=== PATIENT | male | born 1970 | race Caucasian/White ===

== ENCOUNTER → 2016-12-17 | Outpatient (CLI) | payer BC ==
[2016-12-17 11:01] LABS: CHLORIDE,CL 110 mmol/L (98-110); SODIUM,NA 137 mmol/L (136-146)
== END ==
LOC: MW.LAB 09:51
PROVIDERS: ATTEND Internal Medicine
DX: N18.5 Chronic kidney disease, stage 5 (principal)
CPT/HCPCS: 36415; 80069; 82306; 82310; 83970; 85027

== ENCOUNTER 2017-08-05 12:36 | Emergency (ER) | payer MEDICARE, BC ==
[2017-08-05] MEDS ORDERED: Ketorolac 60 MG/2 ML SDV IM ONE (13:10)
--- NOTE | 2017-08-05 13:38 | EDM.PDOC ---
ED HPI GENERAL MEDICAL PROBLEM - General Chief Complaint: Back Pain or Injury Stated Complaint: BACK PAIN Time Seen by Provider: 08/05/17 13:15 Source of Information: Reports: Patient History Limitations: Reports: No Limitations - History of Present Illness INITIAL COMMENTS - FREE TEXT/NARRATIVE: History of present illness: [46-year-old male comes in status post dialysis with complaints of right sided back pain. Patient indicated that it hurts worse when he lies flat on his back but that palpation also makes it hurt.] Review of systems: As per history of present illness and below otherwise all systems reviewed and negative. Past medical history: As per history of present illness and as reviewed below otherwise noncontributory. Surgical history: As per history of present illness and as reviewed below otherwise noncontributory. Social history: No reported history of drug or alcohol abuse. Family history: As per history of present illness and as reviewed below otherwise noncontributory. Physical exam: HEENT: Atraumatic, normocephalic, pupils reactive, negative for conjunctival pallor or scleral icterus, mucous membranes moist, throat clear, neck supple, nontender, trachea midline. Lungs: Clear to auscultation, breath sounds equal bilaterally, chest nontender. Heart: S1S2, regular, negative for clicks, rubs, or JVD. Abdomen: Soft, nondistended, nontender. Negative for masses or hepatosplenomegaly. Negative for costovertebral tenderness. Pelvis: Stable nontender. Genitourinary: Deferred. Rectal: Deferred. Extremities: Atraumatic, negative for cords or calf pain. Neurovascular unremarkable. Neuro: Awake, alert, oriented. Cranial nerves II through XII unremarkable. Cerebellum unremarkable. Motor and sensory unremarkable throughout. Exam nonfocal. Global assessment is benign save the subjective complaint as noted in history of present illness able to reproduce the flank pain with deep palpation to the right side Diagnostics: [UA, CT of abdomen without contrast] Therapeutics: [Toradol, Norflex] Impression: [UTI] Plan: [] Definitive disposition and diagnosis as appropriate pending reevaluation and review of above. Right Back Pain Score (Numeric/FACES): 8 - Related Data Allergies Allergy/AdvReac Type Severity Reaction Status Date / Time No Known Allergies Allergy Verified 08/05/17 13:01 Home Meds: Home Meds Aspirin 81 mg PO BRK 08/05/17 [History] Calcium Acetate [PhosLo] 2 tab PO TID 08/05/17 [History] Doxazosin [Cardura] 1 tab PO BID 08/05/17 [History] Furosemide [Furosemide] 1 tab PO DAILY 08/05/17 [History] Insulin Glarg,Human.Rec.Analog [LantUS Solostar] 25 units SQ BID 08/05/17 [ History] Nitrofurantoin Monohyd/M-Cryst [Macrobid 100 mg Capsule] 100 mg PO BID #20 capsule 08/05/17 [Rx] atorvaSTATin Calcium [Atorvastatin Calcium] 1 tab PO DAILY 08/05/17 [History] Past Medical History Genitourinary History: Reports: Dialysis, Renal Disease Endocrine/Metabolic History: Reports: Diabetes, Type I Social & Family History - Family History Family Medical History: Noncontributory - Tobacco Use Smoking Status *Q: Never Smoker Second Hand Smoke Exposure: No - Caffeine Use Caffeine Use: Reports: Coffee - Recreational Drug Use Recreational Drug Use: No ED ROS GENERAL - Review of Systems Review Of Systems: See Below (See history of present illness) ED EXAM, GENERAL - Physical Exam Exam: See Below (See history of present illness) Course - Vital Signs Last Recorded V/S: Last Vital Signs Temp 35.9 C 08/05/17 13:06 Pulse 80 08/05/17 13:06 Resp 12 08/05/17 13:06 BP 151/81 H 08/05/17 13:06 Pulse Ox 98 08/05/17 13:06 - Orders/Labs/Meds Orders: Active Orders 24 hr Category Date Time Status Orphenadrine [Norflex] Med 08/05/17 13:15 Active 60 mg IM Q12H Medication Orders Orphenadrine Citrate (Norflex) 60 mg IM Q12H HARPAL Last Admin: 08/05/17 13:55 Dose: 60 mg Labs: Laboratory Tests 08/05/17 Range/Units 13:20 Urine Color YELLOW Urine Appearance CLEAR Urine pH 7.5 (5.0-8.0) Ur Specific [place] 1.015 (1.001-1.035) Urine Protein >=300 (NEGATIVE) mg/dL Urine Glucose (UA) 100 H (NEGATIVE) mg/dL Urine Ketones NEGATIVE (NEGATIVE) mg/dL Urine Occult Blood SMALL H (NEGATIVE) Urine Nitrite NEGATIVE (NEGATIVE) Urine Bilirubin NEGATIVE (NEGATIVE) Urine Urobilinogen 0.2 (<2.0) EU/dL Ur Leukocyte Esterase TRACE (NEGATIVE) Urine RBC 0-1 (0-2/HPF) Urine WBC 1-3 (0-5/HPF) Ur Epithelial Cells RARE (NONE-FEW) Urine Bacteria RARE (NEGATIVE) Meds: Medications Generic Name Dose Route Start Last Admin Trade Name Freq PRN Reason Stop Dose Admin Orphenadrine Citrate 60 mg 08/05/17 13:15 08/05/17 13:55 Norflex IM 60 mg Q12H HARPAL Administration Discontinued Medications Generic Name Dose Route Start Last Admin Trade Name Freq PRN Reason Stop Dose Admin Ketorolac Tromethamine 60 mg 08/05/17 13:10 08/05/17 13:56 Toradol IM 08/05/17 13:11 60 mg ONETIME ONE Administration Departure - Departure Time of Disposition: 14:50 Disposition: Home, Self-Care 01 Condition: Good Clinical Impression: UTI (urinary tract infection) - Discharge Information Prescriptions: Nitrofurantoin Monohyd/M-Cryst [Macrobid 100 mg Capsule] 100 mg PO BID #20 capsule Referrals: Devin Florez MD [Primary Care Provider] - Forms: ED Department Discharge Additional Instructions: The following information is given to patients seen in the emergency department who are being discharged to home. This information is to outline your options for follow-up care. We provide all patients seen in our emergency department with a follow-up referral. The need for follow-up, as well as the timing and circumstances, are variable depending upon the specifics of your emergency department visit. If you don't have a primary care physician on staff, we will provide you with a referral. We always advise you to contact your personal physician following an emergency department visit to inform them of the circumstance of the visit and for follow-up with them and/or the need for any referrals to a consulting specialist. The emergency department will also refer you to a specialist when appropriate. This referral assures that you have the opportunity for follow-up care with a specialist. All of these measure are taken in an effort to provide you with optimal care, which includes your follow-up. Under all circumstances we always encourage you to contact your private physician who remains a resource for coordinating your care. When calling for follow-up care, please make the office aware that this follow-up is from your recent emergency room visit. If for any reason you are refused follow-up, please contact the [facility] Emergency Department at and asked to speak to the emergency department charge nurse. Take medication as directed Follow-up with primary care 1-2 days Return to ED as needed as discussed - My Orders Last 24 Hours: My Active Orders 08/05/17 13:15 Orphenadrine [Norflex] 60 mg IM Q12H - Assessment/Plan Last 24 Hours: My Active Orders 08/05/17 13:15 Orphenadrine [Norflex] 60 mg IM Q12H
--- NOTE | 2017-08-05 14:42 | CT ---
CT of the abdomen and pelvis without contrast. HISTORY: Pain TECHNIQUE: Axial CT images were obtained of the abdomen and pelvis without contrast. Coronal and sagi ttal reconstructions obtained. FINDINGS: The lung bases are clear, no pleural effusion. The liver, spleen, adrenal glands, and pancreas appear unremarkable for noncontrast examination. The gallbladder appears normal. There is no bulky retroperitoneal lymphadenopathy. No abdominal ascites. There are no calcifications noted within the kidneys or along the courses of the ureters bilaterally. The large and small bowel are normal in caliber without evidence of obstruction. The appendix appears normal. There is no bulky pelvic lymphadenopathy. No free fluid. No free air. The urinary bladder ap pears normal. The visualized osseous structures appear normal. IMPRESSION: No acute findings within the abdomen or pelvis.
== END 2017-08-05 15:10 | disposition home or self-care (01) ==
LOC: MW.ED 12:36
DX: N39.0 Urinary tract infection, site not specified (principal); Z79.899 Other long term (current) drug therapy; E10.9 Type 1 diabetes mellitus without complications; Z79.4 Long term (current) use of insulin
CPT/HCPCS: 74176; 81001; 96372; 99284; J1885; J2360; 99282

== ENCOUNTER 2017-08-19 00:03 | Emergency (ER) | payer MEDICARE, BC | END 2017-08-19 00:35 | disposition left against medical advice (07) | LOC: MW.ED 00:03 | DX: Z53.21 Procedure and treatment not carried out due to patient leaving prior to being seen by health care provider (principal) | CPT/HCPCS: 99283 ==

== ENCOUNTER 2021-01-03 17:17 | Emergency (ER) | payer MEDICARE, BC ==
[2021-01-03] MEDS ORDERED: Cyclobenzaprine 5 MG Tab PO STA (17:43)
[2021-01-03] MEDS ORDERED: Ketorolac 30 MG/ML SDV IM STA (17:44)
[2021-01-03] MEDS ORDERED: Lidocaine 5% 700 MG Patch TRDERM ONE (18:52)
--- NOTE | 2021-01-03 19:00 | EDM.PDOC ---
<Errol Jimenez Ivan - Last Filed: 01/03/21 19:21> ED HPI GENERAL MEDICAL PROBLEM - General Chief Complaint: Back Pain or Injury Stated Complaint: MAJOR BACK PAIN Time Seen by Provider: 01/03/21 17:34 Source of Information: Reports: Patient History Limitations: Reports: No Limitations - History of Present Illness INITIAL COMMENTS - FREE TEXT/NARRATIVE: Patient is a 50-year-old male who presents today for back pain. Patient was at work as he bent over to lift something any further sharp pain in the right side of his lower back. Patient dates that he had trouble walking and putting pain in his right leg. Patient denies any urinary incontinence any saddle anesthesia or numbness to his lower extremities. Patient denies any falls or injuries to h is back. Right Lower Back Pain Score (Numeric/FACES): 7 - Related Data Allergies Allergy/AdvReac Type Severity Reaction Status Date / Time No Known Allergies Allergy Verified 01/03/21 17:46 Home Meds: Home Meds Aspirin 81 mg PO BEDTIME 08/05/17 [History] Insulin Glarg,Human.Rec.Analog [LantUS Solostar] 25 units SQ BID 08/05/17 [History] atorvaSTATin Calcium [Atorvastatin Calcium] 1 tab PO DAILY 08/05/17 [History] Insulin Aspart [Novolog Flexpen] 1 dose SUBCUT ASDIRECTED 08/19/17 [History] Acetaminophen/HYDROcodone [[place] 325-5 MG] 1 tab PO Q6H PRN #12 tablet 01/03/21 [Rx] Cyclobenzaprine [Flexeril] 10 mg PO TID PRN #20 tab 01/03/21 [Rx] Lidocaine 5% [Lidoderm 5%] 1 patch TOP DAILY PRN #7 patch 01/03/21 [Rx] Tacrolimus [Prograf] 1 dose PO ASDIRECTED 01/03/21 [History] amLODIPine [Norvasc] 5 mg PO DAILY 01/03/21 [History] mycophenolate mofetiL [Mycophenolate Mofetil] 250 mg PO DAILY 01/03/21 [History] predniSONE [Prednisone] 5 mg PO DAILY 01/03/21 [History] Past Medical History - Past Health History Medical/Surgical History: Denies Medical/Surgical History HEENT History: Reports: None Cardiovascular History: Reports: High Cholesterol, Hypertension Genitourinary History: Reports: Dialysis, Renal Disease Endocrine/Metabolic History: Reports: Diabetes, Type I - Infectious Disease History Infectious Disease History: Reports: Chicken Pox Social & Family History - Family History Family Medical History: No Pertinent Family History - Tobacco Use Tobacco Use Status *Q: Never Tobacco User - Caffeine Use Caffeine Use: Reports: Coffee Caffeine Use Comment: 2 cups daily - Recreational Drug Use Recreational Drug Use: No ED ROS GENERAL - Review of Systems Constitutional: Reports: No Symptoms HEENT: Reports: No Symptoms Respiratory: Reports: No Symptoms Cardiovascular: Reports: No Symptoms Endocrine: Reports: No Symptoms GI/Abdominal: Reports: No Symptoms : Reports: No Symptoms Musculoskeletal: Reports: Back Pain Skin: Reports: No Symptoms Neurological: Reports: No Symptoms Psychiatric: Reports: No Symptoms Hematologic/Lymphatic: Reports: No Symptoms Immunologic: Reports: No Symptoms ED EXAM,LOWER BACK PAIN/INJURY - Physical Exam Exam: See Below Exam Limited By: No Limitations General Appearance: Alert, WD/WN, No Apparent Distress Eye Exam: Bilateral Eye: EOMI, PERRL Head: Atraumatic, Normocephalic Respiratory/Chest: No Respiratory Distress, Lungs Clear, Normal Breath Sounds Cardiovascular: Normal Peripheral Pulses, Regular Rate, Rhythm GI/Abdominal: Normal Bowel Sounds, Soft, Non-Tender Back Exam: Normal Inspection, Decreased Range of Motion (due to pain pain with straight leg raise) Neurological: Alert, Normal Mood/Affect, CN II-XII Intact Course - Re-Assessments/Exams Free Text/Narrative Re-Assessment/Exam: 01/03/21 19:21 Patient 7 back pain will attempt to give lidocaine patch. Patient be signed out pain improved patient be discharged home. Departure - Departure Time of Disposition: 19:00 Disposition: Home, Self-Care 01 Condition: Good Clinical Impression: History of renal transplant, History of diabetes mellitus Lumbago Qualifiers: Chronicity: acute Back pain laterality: right Sciatica presence: without sciatica Qualified Code(s): M54.5 - Low back pain - Discharge Information Prescriptions: Cyclobenzaprine [Flexeril] 10 mg PO TID PRN #20 tab PRN Reason: Muscle Spasm Lidocaine 5% [Lidoderm 5%] 1 patch TOP DAILY PRN #7 patch PRN Reason: Pain Acetaminophen/HYDROcodone [[place] 325-5 MG] 1 tab PO Q6H PRN #12 tablet PRN Reason: Pain Instructions: Acute Back Pain, Adult, Pain Medicine Instructions, [id number] Referrals: PCP,None [Primary Care Provider] - Forms: ED Department Discharge Additional Instructions: Your seen and evaluated in the ER today secondary to acute lower back pain. Given your history of diabetes and a kidney transplant, please avoid any nonsteroidal anti-inflammatory medications. You will be started on Flexeril which is a muscle relaxant as well as [place] which is a painkiller. The following information is given to patients seen in the emergency department who are being discharged to home. This information is to outline your options for follow-up care. We provide all patients seen in our emergency department with a follow-up referral. The need for follow-up, as well as the timing and circumstances, are variable depending upon the specifics of your emergency department visit. If you don't have a primary care physician on staff, we will provide you with a referral. We always advise you to contact your personal physician following an emergency department visit to inform them of the circumstance of the visit and for follow-up with them and/or the need for any referrals to a consulting specialist. The emergency department will also refer you to a specialist when appropriate. This referral assures that you have the opportunity for follow-up care with a specialist. All of these measure are taken in an effort to provide you with optimal care, which includes your follow-up. Under all circumstances we always encourage you to contact your private physician who remains a resource for coordinating your care. When calling for follow-up care, please make the office aware that this follow-up is from your recent emergency room visit. If for any reason you are refused follow-up, please contact the [facility] Emergency Department at and asked to speak to the emergency department charge nurse. [facility] [address] [place] [id number] [id number] Sepsis Event Note (ED) - Evaluation Sepsis Screening Result: No Definite Risk - Assessment/Plan Plan: Is a 50-year-old male who presents today for lower back pain after bending over. Patient pain is muscle skeletal in nature will give Toradol Flexeril likely lidocaine patch. <JordonAsh - Last Filed: 01/03/21 20:24> ED HPI GENERAL MEDICAL PROBLEM - History of Present Illness INITIAL COMMENTS - FREE TEXT/NARRATIVE: This is a 50-year-old gentleman with a history significant for a renal transplant approximately 3 years ago secondary to his diabetes who presents ER today secondary to severe sharp excruciating pain on the right side of his lower back that occurred when he was bending over to lift an object. Patient denies any other symptomatology. Patient has any recent fevers, shakes, chills, nausea, vomiting, diarrhea, dysuria, frequency, urgency, hematuria. Patient denies any weakness to his upper or lower extremities. Patient denies any paresthesias to his perineal region. Patient denies any loss of bowel or bladder function. Patient denies any symptoms of be concerning for cauda equina. Patient has any symptoms of be concerning for an epidural abscess. Patient reports that the pain is acute and lateralized to the right side and has no central discomfort. This patient was seen and evaluated during the 2019 SARS-CoV-2 novel coronavirus pandemic period. Community viral transmission is ongoing at time of this en counter and the emergency department is operating under pandemic response procedures. Constitutional: Patient is oriented to person, place, and time. Appears well- developed and well-nourished. No distress. HEENT: Moist mucous membranes Head: Normocephalic and atraumatic Eyes: Right eye exhibits no discharge. Left eye exhibits no discharge. No scleral icterus Neck: Normal range of motion. No tracheal deviation present. Cardiovascular: Normal rate and regular rhythm. Pulmonary: Effort normal, no respiratory distress. Abdominal: No distention Musculoskeletal: Normal range of motion Neurologic: Alert and oriented to person, place and time. Skin: [place], warm and dry. Psychiatric: Normal mood and affect. Behavior is normal. Judgment and thought content normal. Nursing note and vital signs have been reviewed Patient's ER physical exam is significant for tenderness to palpation to his right lower back over his right sacral region. Patient is ambulating in ED without difficulty. Patient has a essentially normal neurological exam. Patient has 5 out of 5 upper and lower extremity strength. Patient has no paresthesias or sensory deficits. Patient has no point C-spine T-spine or L- spine tenderness to palpation. Patient denies any recent fevers. Patient denies any alcohol tobacco or drugs. Patient denies any IVDA. Assessment and plan: This is a 50-year-old gentleman who presents to the ER today secondary to severe pain to his right lower lateral back. 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 I had a long discussion with the patient and he is amenable to getting started on Dilaudid IM here in the ED and will be discharged home with [place] and Flexeril. Patient is requesting to avoid any NSAIDs secondary to his history of renal transplant. Patient also be in a prescription for Lidoderm patches. This was discussed with the patient prior to discharge. Reassessment at the time of disposition demonstrates that the patient is in no acute distress. The patient has remained stable throughout the entire ED visit and is without objective evidence for acute process requiring urgent intervention or hospitalization. The patient is stable for discharge, counseling is provided as documented above, discussed symptomatic treatment and specific conditions for return. I have spoken with the patient/caregiver and discussed todays findings, in addition to providing specific details for the plan of care. Questions are answered and there is agreement with the plan. ED ROS GENERAL - Review of Systems Review Of Systems: See Below Course - Vital Signs Last Recorded V/S: Last Vital Signs Temp 99 F 01/03/21 17:49 Pulse 66 01/03/21 17:57 Resp 17 01/03/21 17:57 BP 122/59 L 01/03/21 17:57 Pulse Ox 99 01/03/21 17:57 - Orders/Labs/Meds Meds: Medications Discontinued Medications Generic Name Dose Route Start Last Admin Trade Name Freq PRN Reason Stop Dose Admin Cyclobenzaprine HCl 5 mg 01/03/21 17:43 01/03/21 17:56 Cyclobenzaprine 5 Mg Tab PO 01/03/21 17:44 5 mg NOW STA Administration Hydromorphone HCl 1 mg 01/03/21 19:21 01/03/21 19:35 Hydromorphone 1 Mg/Ml Syringe IM 01/03/21 19:22 1 mg ONETIME ONE Administration Ketorolac Tromethamine 30 mg 01/03/21 17:44 01/03/21 17:52 Ketorolac 30 Mg/Ml Sdv IM 01/03/21 17:45 30 mg NOW STA Administration Lidocaine 700 mg 01/03/21 18:52 01/03/21 18:58 Lidocaine 5% 700 Mg Patch TRDERM 01/03/21 18:53 700 mg ONETIME ONE Administration Ondansetron HCl 4 mg 01/03/21 19:22 01/03/21 19:35 Ondansetron 4 Mg Tab.Dis PO 01/03/21 19:23 4 mg ONETIME ONE Administration Departure - Departure Condition: Good Sepsis Event Note (ED) - Focused Exam Vital Signs: Vital Signs Temp Pulse Resp BP Pulse Ox 01/03/21 17:57 66 17 122/59 L 99 01/03/21 17:49 99 F 71 20 197/88 H 98
[2021-01-03] MEDS ORDERED: HYDROmorphone 1 MG/ML Syringe IM ONE (19:21)
[2021-01-03] MEDS ORDERED: Ondansetron 4 MG Tab.DIS PO ONE (19:22)
== END 2021-01-03 20:22 | disposition home or self-care (01) ==
LOC: MW.ED 17:17
DX: M54.5 Low back pain (principal); E78.00 Pure hypercholesterolemia, unspecified; I10 Essential (primary) hypertension; E10.9 Type 1 diabetes mellitus without complications; Z79.899 Other long term (current) drug therapy; Z94.0 Kidney transplant status
CPT/HCPCS: 96372; 99283; A9270; J1170; J1885

== ENCOUNTER 2021-08-22 20:39 | Emergency (ER) | payer BC, MEDICARE ==
[2021-08-22] MEDS ORDERED: Sodium Chloride 0.9% 1,000 ML IV ONE (20:46)
[2021-08-22] MEDS ORDERED: Sodium Chloride 0.9% 10 ML Syringe FLUSH PRN (20:46)
[2021-08-22] MEDS ORDERED: Sodium Chloride 0.9% 2.5 ML Syringe FLUSH PRN (20:46)
[2021-08-22 22:04] LABS: BLOOD UREA NITROGEN,BUN 19 mg/dL (7.0-18.0); CHLORIDE,CL 103 mmol/L (98-107); GLUCOSE RANDOM 113 mg/dL (74-106); POTASSIUM,K 3.6 mmol/L (3.5-5.1); SODIUM,NA 142 mmol/L (136-148)
--- NOTE | 2021-08-22 22:57 | EDM.PDOC ---
ED HPI GENERAL MEDICAL PROBLEM - General Chief Complaint: Diabetic Complaint Stated Complaint: DIABETIC SHOCK Time Seen by Provider: 08/22/21 20:52 - History of Present Illness INITIAL COMMENTS - FREE TEXT/NARRATIVE: CHIEF COMPLAINT(S): Low blood sugar HISTORY OF PRESENT ILLNESS: This is a 30-year-old man with a past medical history of insulin-dependent diabetes mellitus and kidney transplant who comes to the emergency department with a chief complaint of low blood sugar. Per EMS: The patient was at work when a coworker contacted EMS because patient was acting abnormal and was having a low glucose. On arrival patient's glucose is 27 however they had difficulty obtaining IV access so they provide the patient with glucagon by mouth. They stated that patient improved during transport. The patient currently states that he does not have any chest pain, shortness of breath, abdominal pain, nausea or vomiting. He states that he just feels cold. He states that he did not take any extra insulin and denies any suicidal ideation. He states that he just did not eat as much today. He states that he normally takes 30 units of long-acting in the evening and 25 in the morning with a sliding scale during the day. He states that other than feeling like his sugar was low he denied any other symptoms but states that he has been working every day for the last month and has been experiencing a lot of stress. He denies any other symptoms REVIEW OF SYSTEMS: Constitutional: Positive for chills. Denies fever Eyes: Denies eye pain Ears, Nose, Mouth, & Throat: Denies earache Cardiovascular: Denies chest pain Respiratory: Denies shortness of breath Gastrointestinal: Denies Nausea, vomiting, diarrhea, hematochezia. Genitourinary: Denies hematuria Skin:Denies a rash MSK: Denies joint pain Neurological: Denies blurred vision Psychiatric: Denies depression PAST MEDICAL HISTORY: As per history of present illness and as reviewed below otherwise noncontributory. SURGICAL HISTORY: As per history of present illness and as reviewed below otherwise noncontributory. SOCIAL HISTORY: As per history of present illness and as reviewed below otherwise noncontributory. FAMILY HISTORY: As per history of present illness and as reviewed below otherwise noncontributory. EXAMINATION OF ORGAN SYSTEMS/BODY AREAS: Constitutional: Blood pressure is 138/117, heart rate 115, respiratory rate 18 with an oxygen saturation of 98% on room air. Temperature 37.1 General: Overall well-appearing man who is in no acute distress Psychiatric: Appropriate mood and affect. Eyes: No scleral icterus or conjunctival erythema ENMT: Moist mucous membranes. No pharyngeal erythema Cardiovascular: Regular, rate, and rhythm. No gallops, murmurs, or rubs. Bilateral upper extremity pulses symmetric and intact. No peripheral edema. No JVD. Respiratory: Lungs clear to auscultation bilaterally. No wheezes, rales, or rhonchi. Gastrointestinal: Soft, non-tender, non-distended. Normoactive bowel sounds Genitourinary: No suprapubic tenderness Musculoskeletal: Normal range of motion. Skin: No lesions or abrasions. Neurological: Alert, GCS 15 MEDICAL DECISION MAKING AND COURSE IN THE ED WITH INTERPRETATION/REVIEW OF DIAGNOSTIC STUDIES: This is a 50-year-old man with a past medical history of insulin-dependent diabetes mellitus who comes to the emergency department with acute hypoglycemic episode. Upon arrival we did obtain a [id number] glucose which was found to be 110. The patient is cold and appears to be shivering likely secondary to the hypoglycemic episode. We did place the patient under a Perfecto hugger. Will obtain labs including CBC, CMP, troponin, EKG, ketones and a Covid swab. We will also obtain a VBG. At this time the patient is already tolerating p.o. We will continue to monitor the patient's glucose for any further episodes of hypoglycemia. Patient was amenable to this plan DDx: Covid, hypoglycemia, seizure Laboratory: CBC reveals a leukocytosis 16.91 otherwise unremarkable. VBG rev eals a pH of 7.34, PCO2 of 50, bicarb of 27. CMP reveals hyperglycemia at 113. Otherwise unremarkable. Ketones are negative. Covid is negative. Troponin was negative Patient was observed here in the emergency department over multiple hours with all of the glucoses continue to remain normal. I did discuss strict return precautions with the patient. He was amenable to discharge and had no further questions DISPOSITION: The patient was discharged home in stable condition. The patient will follow up with primary care physician in 3 to 5 days CONDITION: Fair PROCEDURES: None FINAL IMPRESSION(S)/DIAGNOSES: 1. Acute hypoglycemic episode Silvino Islas M.D. - Related Data Allergies Allergy/AdvReac Type Severity Reaction Status Date / Time No Known Allergies Allergy Verified 08/22/21 20:50 Home Meds: Home Meds Aspirin 81 mg PO BEDTIME 08/05/17 [History] Insulin Glarg,Human.Rec.Analog [LantUS Solostar] 25 units SQ BID 08/05/17 [History] atorvaSTATin Calcium [Atorvastatin Calcium] 1 tab PO DAILY 08/05/17 [History] Insulin Aspart [Novolog Flexpen] 1 dose SUBCUT ASDIRECTED 08/19/17 [History] Acetaminophen/HYDROcodone [[place] 325-5 MG] 1 tab PO Q6H PRN #12 tablet 01/03/21 [Rx] Cyclobenzaprine [Flexeril] 10 mg PO TID PRN #20 tab 01/03/21 [Rx] Lidocaine 5% [Lidoderm 5%] 1 patch TOP DAILY PRN #7 patch 01/03/21 [Rx] Lidocaine 5% [Lidoderm 5%] 1 patch TOP DAILY PRN #7 patch 01/03/21 [Rx] Tacrolimus [Prograf] 1 dose PO ASDIRECTED 01/03/21 [History] amLODIPine [Norvasc] 5 mg PO DAILY 01/03/21 [History] mycophenolate mofetiL [Mycophenolate Mofetil] 250 mg PO DAILY 01/03/21 [History] predniSONE [Prednisone] 5 mg PO DAILY 01/03/21 [History] Past Medical History - Past Health History Medical/Surgical History: Denies Medical/Surgical History HEENT History: Reports: None Cardiovascular History: Reports: High Cholesterol, Hypertension Genitourinary History: Reports: Dialysis, Renal Disease Endocrine/Metabolic History: Reports: Diabetes, Type I - Infectious Disease History Infectious Disease History: Reports: Chicken Pox Social & Family History - Family History Family Medical History: No Pertinent Family History - Tobacco Use Tobacco Use Status *Q: Never Tobacco User - Caffeine Use Caffeine Use: Reports: None Caffeine Use Comment: 2 cups daily - Recreational Drug Use Recreational Drug Use: No ED ROS GENERAL - Review of Systems Review Of Systems: See Below ED EXAM GENERAL NO PERIP PULSE - Physical Exam Exam: See Below Course - Vital Signs Last Recorded V/S: Last Vital Signs Temp 37.1 C 08/22/21 20:50 Pulse 87 08/22/21 23:11 Resp 16 08/22/21 23:11 BP 153/82 H 08/22/21 23:11 Pulse Ox 97 08/22/21 23:11 - Orders/Labs/Meds Orders: Active Orders 24 hr Category Date Time Status Saline Lock Insert [OM.PC] Stat Oth 08/22/21 20:47 Ordered Labs: Laboratory Tests 08/22/21 08/22/21 08/22/21 Range/Units 21:10 21:31 21:32 WBC 16.91 H (4.0-11.0) K/uL RBC 5.58 (4.50-5.90) M/uL Hgb 16.3 (13.0-17.0) g/dL Hct 47.7 (38.0-50.0) % MCV 85.5 (80.0-98.0) fL MCH 29.2 (27.0-32.0) pg MCHC 34.2 (31.0-37.0) g/dL RDW Std Deviation 43.2 (28.0-62.0) fl RDW Coeff of Kathrine 14 (11.0-15.0) % Plt Count 264 (150-400) K/uL MPV 9.70 (7.40-12.00) fL Neut % (Auto) 90.5 H (48.0-80.0) % Lymph % (Auto) 2.8 L (16.0-40.0) % [place] % (Auto) 6.1 (0.0-15.0) % Eos % (Auto) 0.5 (0.0-7.0) % Baso % (Auto) 0.1 (0.0-1.5) % Neut # (Auto) 15.3 H (1.4-5.7) K/uL Lymph # (Auto) 0.5 L (0.6-2.4) K/uL [place] # (Auto) 1.0 H (0.0-0.8) K/uL Eos # (Auto) 0.1 (0.0-0.7) K/uL Baso # (Auto) 0.0 (0.0-0.1) K/uL Nucleated RBC % 0.0 /100WBC Nucleated RBCs # 0 K/uL VBG pH (7.31-7.41) VBG pCO2 (41-51) mmHG VBG pO2 mmHG VBG HCO3 (23-28) mEq/L VBG Total CO2 (24-29) mmol/L VBG Base Excess (-2.0-3.0) Sodium (136-148) mmol/L Potassium (3.5-5.1) mmol/L Chloride (98-107) mmol/L Carbon Dioxide (21.0-32.0) mmol/L BUN (7.0-18.0) mg/dL Creatinine (0.8-1.3) mg/dL Est Cr Clr Drug Dosing mL/min Estimated GFR (MDRD) ml/min Glucose (74-106) mg/dL POC Glucose 110 H (70-99) mg/dL Calcium (8.5-10.1) mg/dL Total Bilirubin (0.2-1.0) mg/dL AST (15-37) IU/L ALT (14-63) IU/L Alkaline Phosphatase (46-116) U/L Troponin I (0.000-0.056) ng/mL Total Protein (6.4-8.2) g/dL Albumin (3.4-5.0) g/dL Globulin (2.6-4.0) g/dL Albumin/Globulin Ratio (0.9-1.6) Ketones (NEG) SARS-CoV-2 RNA (SUPRIYA) NEGATIVE (NEGATIVE) 08/22/21 08/22/21 08/22/21 Range/Units 21:32 21:32 21:32 WBC (4.0-11.0) K/uL RBC (4.50-5.90) M/uL Hgb (13.0-17.0) g/dL Hct (38.0-50.0) % MCV (80.0-98.0) fL MCH (27.0-32.0) pg MCHC (31.0-37.0) g/dL RDW Std Deviation (28.0-62.0) fl RDW Coeff of Kathrine (11.0-15.0) % Plt Count (150-400) K/uL MPV (7.40-12.00) fL Neut % (Auto) (48.0-80.0) % Lymph % (Auto) (16.0-40.0) % [place] % (Auto) (0.0-15.0) % Eos % (Auto) (0.0-7.0) % Baso % (Auto) (0.0-1.5) % Neut # (Auto) (1.4-5.7) K/uL Lymph # (Auto) (0.6-2.4) K/uL [place] # (Auto) (0.0-0.8) K/uL Eos # (Auto) (0.0-0.7) K/uL Baso # (Auto) (0.0-0.1) K/uL Nucleated RBC % /100WBC Nucleated RBCs # K/uL VBG pH 7.34 (7.31-7.41) VBG pCO2 50 (41-51) mmHG VBG pO2 < 30 mmHG VBG HCO3 27 (23-28) mEq/L VBG Total CO2 24 (24-29) mmol/L VBG Base Excess 0.1 (-2.0-3.0) Sodium 142 (136-148) mmol/L Potassium 3.6 (3.5-5.1) mmol/L Chloride 103 (98-107) mmol/L Carbon Dioxide 27.0 (21.0-32.0) mmol/L BUN 19 H (7.0-18.0) mg/dL Creatinine 1.2 (0.8-1.3) mg/dL Est Cr Clr Drug Dosing 85.08 mL/min Estimated GFR (MDRD) > 60.0 ml/min Glucose 113 H (74-106) mg/dL POC Glucose (70-99) mg/dL Calcium 9.6 (8.5-10.1) mg/dL Total Bilirubin 0.7 (0.2-1.0) mg/dL AST 14 L (15-37) IU/L ALT 35 (14-63) IU/L Alkaline Phosphatase 78 (46-116) U/L Troponin I < 0.050 (0.000-0.056) ng/mL Total Protein 7.7 (6.4-8.2) g/dL Albumin 4.4 (3.4-5.0) g/dL Globulin 3.3 (2.6-4.0) g/dL Albumin/Globulin Ratio 1.3 (0.9-1.6) Ketones NEGATIVE (NEG) SARS-CoV-2 RNA (SUPRIYA) (NEGATIVE) 08/22/21 Range/Units 22:52 WBC (4.0-11.0) K/uL RBC (4.50-5.90) M/uL Hgb (13.0-17.0) g/dL Hct (38.0-50.0) % MCV (80.0-98.0) fL MCH (27.0-32.0) pg MCHC (31.0-37.0) g/dL RDW Std Deviation (28.0-62.0) fl RDW Coeff of Kathrine (11.0-15.0) % Plt Count (150-400) K/uL MPV (7.40-12.00) fL Neut % (Auto) (48.0-80.0) % Lymph % (Auto) (16.0-40.0) % [place] % (Auto) (0.0-15.0) % Eos % (Auto) (0.0-7.0) % Baso % (Auto) (0.0-1.5) % Neut # (Auto) (1.4-5.7) K/uL Lymph # (Auto) (0.6-2.4) K/uL [place] # (Auto) (0.0-0.8) K/uL Eos # (Auto) (0.0-0.7) K/uL Baso # (Auto) (0.0-0.1) K/uL Nucleated RBC % /100WBC Nucleated RBCs # K/uL VBG pH (7.31-7.41) VBG pCO2 (41-51) mmHG VBG pO2 mmHG VBG HCO3 (23-28) mEq/L VBG Total CO2 (24-29) mmol/L VBG Base Excess (-2.0-3.0) Sodium (136-148) mmol/L Potassium (3.5-5.1) mmol/L Chloride (98-107) mmol/L Carbon Dioxide (21.0-32.0) mmol/L BUN (7.0-18.0) mg/dL Creatinine (0.8-1.3) mg/dL Est Cr Clr Drug Dosing mL/min Estimated GFR (MDRD) ml/min Glucose (74-106) mg/dL POC Glucose 142 H (70-99) mg/dL Calcium (8.5-10.1) mg/dL Total Bilirubin (0.2-1.0) mg/dL AST (15-37) IU/L ALT (14-63) IU/L Alkaline Phosphatase (46-116) U/L Troponin I (0.000-0.056) ng/mL Total Protein (6.4-8.2) g/dL Albumin (3.4-5.0) g/dL Globulin (2.6-4.0) g/dL Albumin/Globulin Ratio (0.9-1.6) Ketones (NEG) SARS-CoV-2 RNA (SUPRIYA) (NEGATIVE) Meds: Medications Discontinued Medications Generic Name Dose Route Start Last Admin Trade Name Freq PRN Reason Stop Dose Admin Sodium Chloride 1,000 mls @ 999 mls/hr 08/22/21 20:46 08/22/21 22:05 Normal Saline IV 08/22/21 21:46 Not Given BOLUS ONE Sodium Chloride 2.5 ml 08/22/21 20:46 08/22/21 21:05 Sodium Chloride 0.9% 2.5 Ml Syringe FLUSH 2.5 ml ASDIRECTED PRN Administration Keep Vein Open Sodium Chloride 10 ml 08/22/21 20:46 08/22/21 21:05 Sodium Chloride 0.9% 10 Ml Syringe FLUSH 10 ml ASDIRECTED PRN Administration Keep Vein Open Departure - Departure Time of Disposition: 22:57 Disposition: Home, Self-Care 01 Condition: Fair Clinical Impression: Hypoglycemia - Discharge Information *PRESCRIPTION DRUG MONITORING PROGRAM REVIEWED*: No *COPY OF PRESCRIPTION DRUG MONITORING REPORT IN PATIENT KIMBERLY: No Instructions: Preventing Hypoglycemia, Hypoglycemia Referrals: Macario Moreno MD [Primary Care Provider] - Forms: ED Department Discharge Additional Instructions: Your evaluated today on an emergent basis. At this time all of your work-up was normal. Your blood sugar level was decreased when EMS arrived however it is now normal. I recommend that you continue to check your blood sugars throughout the day and follow-up with your primary care physician to discuss medication adjustments. If you have recurrence of the symptoms, chest pain or not feeling well please return to the emergency department. I do recommend that you as you already doing carry candy bars and soda just in case you have symptoms of low blood sugar again. [facility] [address] [place] [id number] [facility] [address] [place] [address] The patient is informed of any results of their evaluation and diagnostic workup and all questions are answered. They are given discharge instructions and return precautions. The patient is stable for discharge. The patient states they understand and agree with the plan and that they will return if their symptoms get worse or if they have any new concerns. The following information is given to patients seen in the emergency department who are being discharged to home. This information is to outline your options for follow-up care. We provide all patients seen in our emergency department with a follow-up referral. The need for follow-up, as well as the timing and circumstances, are variable depending upon the specifics of your emergency department visit. If you don't have a primary care physician on staff, we will provide you with a referral. We always advise you to contact your personal physician following an emergency department visit to inform them of the circumstance of the visit and for follow-up with them and/or the need for any referrals to a consulting specialist. The emergency department will also refer you to a specialist when appropriate. This referral assures that you have the opportunity for follow-up care with a specialist. All of these measure are taken in an effort to provide you with optimal care, which includes your follow-up. Under all circumstances we always encourage you to contact your private physician who remains a resource for coordinating your care. When calling for follow-up care, please make the office aware that this follow-up is from your recent emergency room visit. If for any reason you are refused follow-up, please contact the [facility] Emergency Department at and asked to speak to the emergency department charge nurse. Sepsis Event Note (ED) - Evaluation Sepsis Screening Result: No Definite Risk - Focused Exam Vital Signs: Vital Signs Temp Pulse Resp BP Pulse Ox 08/22/21 23:11 87 16 153/82 H 97 08/22/21 21:53 80 16 186/95 H 96 08/22/21 20:50 37.1 C 115 H 18 138/117 H 98
--- NOTE | 2021-08-23 01:28 | PCM.EKG ---
#1 Interpretation EKG Date: 08/22/21 Time: 23:05 Rhythm: NSR Rate (Beats/Min): 77 [place]: Normal P-Wave: Present QRS: Normal ST-T: Normal QT: Normal Comparison: NA - No Prior EKG EKG Interpretation Comments: Sinus Rhythm
== END 2021-08-22 23:19 | disposition home or self-care (01) ==
LOC: MW.ED 20:39
DX: E10.649 Type 1 diabetes mellitus with hypoglycemia without coma (principal); E78.00 Pure hypercholesterolemia, unspecified; I10 Essential (primary) hypertension; Z79.82 Long term (current) use of aspirin; Z79.899 Other long term (current) drug therapy; Z20.822 Contact with and (suspected) exposure to COVID-19
CPT/HCPCS: 36415; 80053; 82009; 82803; 82947; 84484; 85025; 93005; 99285-25; U0002

== ENCOUNTER 2024-03-04 10:06 | Emergency (ER) | payer BC ==
[2024-03-04] MEDS: Methocarbamol 750 MG Tab PO STA (11:24)
[2024-03-04] MEDS: HYDROmorphone 2 MG Tab PO STA (11:24)
== END 2024-03-04 12:05 | disposition home or self-care (01) ==
LOC: MW.ED 10:06
DX: M54.50 Low back pain, unspecified (principal); E78.00 Pure hypercholesterolemia, unspecified; I10 Essential (primary) hypertension; E10.9 Type 1 diabetes mellitus without complications; Z79.899 Other long term (current) drug therapy; Z79.82 Long term (current) use of aspirin; Z79.4 Long term (current) use of insulin; Z75.8 Other problems related to medical facilities and other health care
CPT/HCPCS: 72131; 99283; A9270

== ENCOUNTER 2024-08-30 11:36 | Emergency (ER) | payer BC ==
[2024-08-30 12:41] LABS: BASOPHILS ABSOLUTE AUTO 0.06 K/uL (0.00-0.20); BASOPHILS PERCENT AUTO 0.4 % (0.0-1.0); EOSINOPHILS ABSOLUTE AUTO 0.11 K/uL (0.00-0.45); EOSINOPHILS PERCENT AUTO 0.7 % (0.0-6.0); HEMATOCRIT 47.1 % (42.0-52.0); HEMOGLOBIN 15.5 g/dL (14.0-18.0); IMMATURE GRAN ABSOLUTE AUTO 0.05 K/uL (0.00-0.05); IMMATURE GRAN PERCENT AUTO 0.3 % (0.0-0.4); LYMPHOCYTES ABSOLUTE AUTO 0.51 K/uL (1.00-4.80); LYMPHOCYTES PERCENT AUTO 3.4 % (24.0-44.0); MEAN CORPUSCULAR HEMOGLOBIN 28.3 pg (28.0-32.0); MEAN CORPUSCULAR HGB CONC 32.9 g/dL (32.0-36.0); MEAN CORPUSCULAR VOLUME 86.1 fL (83.0-99.0); MEAN PLATELET VOLUME 9.2 fL (9.4-12.4); MONOCYTES ABSOLUTE AUTO 0.62 K/uL (0.00-0.80); MONOCYTES PERCENT AUTO 4.1 % (0.0-8.0); NEUTROPHILS PERCENT AUTO 91.1 % (41.0-71.0); PLATELET COUNT,PLT 284 K/uL (150-400); RED BLOOD CELL COUNT 5.47 M/uL (4.52-5.90); WHITE BLOOD CELL COUNT,WBC 15.05 K/uL (3.9-11.3)
[2024-08-30 13:02] LABS: A/G RATIO 1.5 (0.9-1.6); ALBUMIN 4.2 g/dL (3.4-5.0); BILIRUBIN TOTAL 0.8 mg/dL (0.2-1.0); CALCIUM 9.6 mg/dL (8.5-10.1); CARBON DIOXIDE,CO2 31.6 mmol/L (21.0-32.0); EST CRCL DRUG DOSING (CG) 97.66 mL/min; POTASSIUM,K 4.4 mmol/L (3.5-5.1)
== END 2024-08-30 13:31 | disposition home or self-care (01) ==
LOC: MW.ED 11:36
DX: E10.649 Type 1 diabetes mellitus with hypoglycemia without coma (principal); Z75.8 Other problems related to medical facilities and other health care; E78.00 Pure hypercholesterolemia, unspecified; Z79.899 Other long term (current) drug therapy; Z79.4 Long term (current) use of insulin; Z79.82 Long term (current) use of aspirin
CPT/HCPCS: 36415; 80053; 82947; 85025; 99285